=== PATIENT | female | born 1955 | race Caucasian/White ===

== ENCOUNTER 2021-01-06 12:39 | Emergency (ER) | payer MEDICARE, OTHER ==
[~2021-01-06] VITALS: Ht 152.4 cm; Wt 55.3 kg
[~2021-01-06 12:39] MED LIST: ALPR0.255 PO; CARI350T PO; GABA-534 PO; ROSU5TAB PO
[2021-01-06] MEDS ORDERED: FENTANYL PF 100MCG/2ML AMPUL ONE ×2 (13:12→22:35)
--- NOTE | 2021-01-06 13:20 | NUR ---
MEDICAL PHYSICS RESEARCHER AT PT'S BEDSIDE
[2021-01-06] MEDS ORDERED: FENTANYL PF 100MCG/2ML AMPUL IV ONE (13:30)
[2021-01-06 13:42] LABS: BASOPHILS % (AUTO) 0.4 % (0.0-2.0); EOSINOPHILS % (AUTO) 0.7 % (0.0-6.0); HEMATOCRIT 35 % (33-45); HEMOGLOBIN 11.8 g/dL (11.5-14.8); LYMPHOCYTES # (AUTO) 1.5 K/uL (0.8-4.8); LYMPHOCYTES % (AUTO) 32.1 % (20.0-44.0); MEAN CORPUSCULAR HGB CONC 34 g/dl (31.0-36.0); MEAN CORPUSCULAR VOLUME 95 fL (82-100); MONOCYTES # (AUTO) 0.3 K/uL (0.1-1.30); MONOCYTES % (AUTO) 5.7 % (2.0-12.0); NEUTROPHILS # (AUTO) 2.9 K/uL (1.8-8.9); NEUTROPHILS % (AUTO) 61.1 % (43.0-81.0); PLATELET COUNT (AUTO) 200 K/uL (150-450); RED BLOOD CELL COUNT(AUTO) 3.67 MIL/uL (4.0-5.2); WHITE BLOOD COUNT (AUTO) 4.7 K/uL (4.3-11.0)
[2021-01-06 13:47] LABS: CALCIUM, SERUM 8.4 mg/dL (8.5-10.1); CREATININE 1.2 mg/dL (0.6-1.3); POTASSIUM 4.1 mmol/L (3.5-5.1)
[2021-01-06] MEDS ORDERED: ACET-868 PO (13:53)
[2021-01-06] MEDS ORDERED: TEMA30CA PO (13:53)
[2021-01-06] MEDS ORDERED: GABA-532 PO (13:53)
--- NOTE | 2021-01-06 13:55 | NUR ---
COVID SWAB DONE AND SENT TO THE LAB
--- NOTE | 2021-01-06 15:18 | NUR ---
Jasson wilson in [facility] - 01/06/21 at 1533 by SAMUEL CALLED CY, [employer]ATING [employer], AND WAS NOTIFIED THAT [facility] IS STILL WATING FOR DISCHARGE OF A PT.
[2021-01-06] MEDS ORDERED: GABAPENTIN 300 MG CAPSULE ONE (15:29)
[2021-01-06] MEDS ORDERED: ALPRAZOLAM 0.25 MG TABLET ONE (15:29)
--- NOTE | 2021-01-06 15:29 | NUR ---
ROOM 328-2
[2021-01-06] MEDS ORDERED: GABAPENTIN 100 MG CAPSULE PO ONE (15:30)
[2021-01-06] MEDS ORDERED: ALPRAZOLAM 0.25 MG TABLET PO ONE (15:30)
--- NOTE | 2021-01-06 15:30 | NUR ---
AWAITING DR BOYCE, ORTHO, APROVAL BEFORE PT IS BROUGHT TO BED 328-2
--- NOTE | 2021-01-06 16:10 | NUR ---
CALLED DR. BOYCE AND WAS ORDERED NOT TO ADMIT THE PT UNTIL FURTHER NOTICE.
[2021-01-06] MEDS ORDERED: HYDROMORPHONE 1 MG/1 ML DISP.SYRIN IV STA ×2 (16:45→17:15)
[2021-01-06] MEDS ORDERED: HYDROMORPHONE 1 MG/1 ML DISP.SYRIN ONE (17:02)
--- NOTE | 2021-01-06 17:16 | NUR ---
RECEIVED AN ORDER FROM DR OLIVER: DILAUDID 1 MG IV ONCE STAT. THE ORDER IS READ BACK, VERIFIED, NOTED AND CARRIED OUT.
[2021-01-06] MEDS ORDERED: FENTANYL PF 100MCG/2ML AMPUL IV PRN (17:30)
--- NOTE | 2021-01-06 18:32 | NUR ---
CALLED DR BOYCE AND WAS NOTIFIED THAT WILL BE VISTING THE PT NOW.
--- NOTE | 2021-01-06 18:40 | NUR ---
DR. HOUSER AT BEDSIDE
--- NOTE | 2021-01-06 19:15 | NUR ---
[facility]T AT BEDSIDE/
--- NOTE | 2021-01-06 21:50 | NUR ---
CALLED [facility] AT [phone] . PER EUSEBIO THEY'RE AT MAX CAPACITY. PT'S INFO WAS PROVIDED OVER THE PHONE. WILL FAX THE CLINICALS
--- NOTE | 2021-01-06 22:04 | NUR ---
FAXED FACE SHEET AND CLINICALS TO [facility] @ [phone]
--- NOTE | 2021-01-06 22:08 | NUR ---
CALLED [facility] AT [phone]. THEY'RE COMPLETELY FULL. HOWEVER [facility] IS ASKING FOR CLINICALS AND FULL IMAGING TO BE UPLOADED TO THEM
--- NOTE | 2021-01-06 22:21 | NUR ---
FAXED FACE SHEET AND CLINICALS TO [facility] @ [phone]
--- NOTE | 2021-01-06 22:33 | NUR ---
SPOKE TO JOSÉ AT [facility] AND UBTAINED HIS EMAIL ADDRESS. CALLED ANKUR AT [facility] AND PROVIDED HIM W/ JOSÉ'S EMAIL ADDRESS. HE WILL SEND A LINK TO JOSÉ TO UPLOAD THE IMAGING.
--- NOTE | 2021-01-06 22:36 | NUR ---
CALLED [facility] AND SPOKE TO ARTUR. UNABLE TO ACCEPT THE PT THEY ARE HOLDING ADMISSIONS IN ER.
--- NOTE | 2021-01-07 00:22 | NUR ---
CD OF THE IMAGING WAS SENT TO JULIETA LESTER TO BE DELIVERED TO [facility] [place] AT [address] [place] [address]
[2021-01-07] MEDS ORDERED: ALPRAZOLAM 0.5 MG TABLET ONE ×3 (00:28→18:20)
[2021-01-07] MEDS ORDERED: ALPRAZOLAM 1 MG TABLET PO ONE (00:30)
[2021-01-07] MEDS ORDERED: HYDROMORPHONE 1 MG/1 ML DISP.SYRIN ONE (05:52)
[2021-01-07] MEDS ORDERED: HYDROMORPHONE 1 MG/1 ML DISP.SYRIN IV PRN (06:00)
--- NOTE | 2021-01-07 08:02 | NUR ---
THE PATIENT IS RECEIVED IN ER BED #9. ALERT AND ORIENTED X4. IN ROOM AIR AND DENIES SOB. RESPIRATION REGULAR AND UNLABORED. WILL CONTINUE TO MONITOR THE PATIENT
--- NOTE | 2021-01-07 08:25 | NUR ---
[facility] [phone] CELL PHONE
--- NOTE | 2021-01-07 10:05 | NUR ---
CALLED [facility] AND FAXED FACE SHEET ATTN SRINIVASA. NO BEDS AT THIS TIME BUT WILL KEEP PT INFO.
--- NOTE | 2021-01-07 10:16 | NUR ---
CALLED [facility] [phone] AWAITING ORTHO TO GET BACK TO THEM. WILL UPDATE WHEN AVAILABLE.
[2021-01-07] MEDS ORDERED: MORPHINE SULFATE INJ 4 MG/ML DISP.SYRIN ONE ×2 (11:04→18:10)
--- NOTE | 2021-01-07 11:04 | NUR ---
[facility] NO BEDS AVAILABLE
--- NOTE | 2021-01-07 11:29 | NUR ---
CALLED [facility] NO BED AVAILABLE AT THIS TIME.
[2021-01-07] MEDS ORDERED: MORPHINE SULFATE INJ 4 MG/ML DISP.SYRIN IV PRN (11:30)
--- NOTE | 2021-01-07 12:41 | NUR ---
FAXED CLINICALS TO [facility]
--- NOTE | 2021-01-07 14:12 | NUR ---
CALLED [facility] [phone] FOR UPDATE. WAITING FOR HOSPITALIST TO CALL US.
--- NOTE | 2021-01-07 14:26 | NUR ---
DR. NEVILLE SPEAKING WITH DR. HODGE.
--- NOTE | 2021-01-07 14:31 | NUR ---
[facility] CALLED PT DECLINED DUE TO BED CAPACITY
--- NOTE | 2021-01-07 14:56 | NUR ---
PLEASE EMAIL DR. BEJARANO AT [facility] WITH IMAGES,
--- NOTE | 2021-01-07 15:45 | NUR ---
DR. BEJARANO IS ARRANGING IMPLANT TO BE SENT HERE PER ALISON AT [facility]
--- NOTE | 2021-01-07 16:07 | NUR ---
CALLED [facility] [phone] [facility] WILL BE PAGED.
--- NOTE | 2021-01-07 17:28 | NUR ---
CALLED [facility] [phone] WILL FIND OUT WHOM DR. BEJARANO SPOKE WITH AND VENDERS TEL NUMBER.
--- NOTE | 2021-01-07 17:34 | NUR ---
CALLED [facility] [phone] TO FOLLOWUP. AWAITING MEDICAL ACCEPTANCE. PER VERONICA
[2021-01-07] MEDS ORDERED: MORPHINE SULFATE INJ 2 MG/ML DISP.SYRIN IV ONE (18:00)
--- NOTE | 2021-01-07 18:01 | NUR ---
CALLED [facility] [phone] [facility] SUP SPEAKING WITH DR. CALDERON. WILL CONTACT ORTHO AND CALL US BACK. NOT A TRAUMA CASE PER DR. CAGE FROM TRAUMA TEAM OF [facility]
--- NOTE | 2021-01-07 18:12 | NUR ---
[facility] SUP CALLED DR. MIHAELA MONTESINOS ACCEPTED AWAITING HOSPITALIST DR. BEY ACCEPTANCE. [facility] [place] PAGED. [phone]
--- NOTE | 2021-01-07 18:23 | NUR ---
DR. AMAYA ON THE PHONE
[2021-01-07] MEDS ORDERED: ALPRAZOLAM 0.5 MG TABLET PO ONE (18:30)
--- NOTE | 2021-01-07 18:34 | NUR ---
PT ACCEPTED TO [facility] ED UNDER DR. AMAYA CALL [phone] FOR REPORT.
--- NOTE | 2021-01-07 18:34 | NUR ---
PER HOUSE [facility]
--- NOTE | 2021-01-07 18:37 | NUR ---
[facility] CALLED ETA 45 MINS PER TOMMIE.
--- NOTE | 2021-01-07 19:14 | NUR ---
REPORT GIVEN TO NURSE PECK FROM [facility]
--- NOTE | 2021-01-07 19:31 | NUR ---
CALLED [facility] NEW ETA IS 10 MINS PER TOMMIE.
[2021-01-07 20:00] VITALS: BP 137/79
--- NOTE | 2021-01-07 20:05 | NUR ---
[facility] AT BED SIDE TO [facility] MANAGER THE PT
--- NOTE | 2021-01-07 20:20 | NUR ---
PT WAS TRANSFERRED TO [facility] IN STABLE CONDITION
== END 2021-01-07 20:20 | disposition short-term general hospital (02) ==
LOC: ER 12:43 → MED 15:33 → UNDOADMIN 15:33 → MED 21:49 → ER 01-07 20:20
DX: S82.141A Displaced bicondylar fracture of right tibia, initial encounter for closed fracture (principal); S52.572A Other intraarticular fracture of lower end of left radius, initial encounter for closed fracture; S52.612A Displaced fracture of left ulna styloid process, initial encounter for closed fracture; W01.0XXA Fall on same level from slipping, tripping and stumbling without subsequent striking against object, initial encounter; Y92.481 Parking lot as the place of occurrence of the external cause; M79.7 Fibromyalgia; Z88.6 Allergy status to analgesic agent; Z88.0 Allergy status to penicillin; Z20.822 Contact with and (suspected) exposure to COVID-19; M85.861 Other specified disorders of bone density and structure, right lower leg
CPT/HCPCS: 25605; 27532; 36415; 51702; 71045; 73110; 73562; 73590; 80048; 85025; 85730; 86850; 87426; 93005; 96374; 96375; 96376; 99285; J1170 ×2; J2270 ×2; J3010 ×2; C9803; G0378